=== PATIENT | male | born 1950 ===

== ENCOUNTER 2024-05-30 08:20 | Inpatient (IN) | payer MEDICARE, MEDICAID, SELFPAY ==
--- NOTE | ~2024-05-30 | CT_ITS ---
EXAMINATION: CT HEAD WITHOUT CONTRAST CLINICAL INFORMATION: Increasing confusion for 6 months. COMPARISON: None available. TECHNIQUE: Contiguous axial imaging was performed from the skull base to vertex without intravenous administration of contrast. This CT examination was performed using dose optimization techniques as appropriate, variously including the following: *Automated exposure control *Adjustment of mA and/or kV according to patient size (this includes techniques or standardized protocols for targeted exams where dose is matched to indication/reason for exam; i.e. extremities or head) *Use of iterative reconstruction technique DLP: 673 mGy-cm FINDINGS: CT examination of the brain shows mild age-related involutional changes with prominence of the ventricles and sulci. Periventricular white matter hypodensities are evident, likely on the basis of chronic microvascular ischemic disease. No acute hemorrhage, mass effect or shift is evident. In the posterior fossa, the brainstem, cerebellum and fourth ventricle are unremarkable. The right orbit contains a prosthesis.. The paranasal sinuses and mastoid air cells are well pneumatized and clear. CT/CT head/brain wo IV con IMPRESSION: 1. Mild Age-related involutional changes and microvascular disease. 2. No acute hemorrhage, mass effect, shift or acute intracranial pathology. Electronically signed by: Rivera Hernandez MD 05/30/2024 12:15 PM EDT
--- NOTE | ~2024-05-30 | XR_ITS ---
EXAMINATION: XR CHEST CLINICAL INFORMATION: Confusion COMPARISON: None available. TECHNIQUE: 2 views of the chest were obtained. FINDINGS: The cardiomediastinal silhouette is within normal limits. The lungs are well expanded. Hazy opacity in the medial aspect of the right lung base. There is no edema, or effusion. No pneumothorax. No acute osseous abnormality. Multilevel thoracic spine degeneration. XR/XR chest 2V IMPRESSION: Opacity in the medial aspect right lung base could reflect inflammatory or infectious process. Electronically signed by: German Alvarado MD 05/30/2024 12:07 PM EDT
[2024-05-30 08:46] VITALS: BP 128/56; PULSE 57; RESP 16; TEMP 37; O2SAT 98; BMI 28.0
[2024-05-30 09:25] LABS: MANUAL DIFF FLAG NO
[2024-05-30 09:28] LABS: Basophils Absolute Auto 0.1 X10*3/uL (0.0-0.2); Basophils Percent Auto 0.9 % (0-2); Eosinophils Absolute Auto 0.1 X10*3/uL (0.0-0.4); Eosinophils Percent Auto 2.2 % (0-4); Hematocrit 43.8 % (42.0-52.0); Hemoglobin 15.2 g/dl (14.0-18.0); Imm Gran Abs Auto 0.01 X10*3/uL (0.00-0.03); Imm Gran Pct Auto 0.2 % (0.0-0.4); Lymphocytes Absolute Auto 1.7 X10*3/uL (1.2-4.9); Lymphocytes Percent Auto 29.8 % (20-40); Mean Corpuscular HGB Conc 34.7 g/dl (31.0-36.0); Mean Corpuscular Hemoglobin 30.8 pg (27.0-33.0); Mean Corpuscular Volume 88.8 fL (80.0-98.0); Mean Platelet Volume 9.6 fL (9.4-12.4); Monocytes Absolute Auto 0.6 X10*3/uL (0.1-1.2); Monocytes Percent Auto 11.6 % (2-11); Neutrophils Absolute Auto 3.1 x10*3/uL (2.0-8.3); Neutrophils Percent Auto 55.3 % (45-73); Platelet Count 200 X10*3/uL (160-400); Red Blood Count 4.93 X10*6/uL (4.60-5.80); Red Cell Distribution Width 13.3 % (11.0-16.0); White Blood Count 5.5 X10*3/uL (4.8-10.8)
[2024-05-30 09:40] LABS: Anion Gap 9 (12-20); Blood Urea Nitrogen 13 mg/dL (9-16); Carbon Dioxide 28 mmol/L (22-29); Chloride 111 mmol/L (96-108); Creatinine Clr Calc Pharmacy 69.2; Estimated Glomerular Filt Rate > 60; Glucose Random 107 mg/dL (60-115); Potassium 4.1 mmol/L (3.3-5.1); Sodium 144 mmol/L (135-145)
--- NOTE | 2024-05-30 10:46 | ED_ITS ---
HPI - General Adult General Chief complaint: General Medical Stated complaint: high [id number] in legs Time Seen by Provider: 05/30/24 10:37 Source: patient, family, EMS, RN notes reviewed and old records reviewed Mode of arrival: EMS History of Present Illness ED Provider: Rachael Early PA-C HPI narrative: 73-year-old male Japanese-speaking with past medical history of Diabetes on Metformin, HTN, presenting to ED via EMS complaining of acute on chronic weakness with difficulty ambulating x6 months, difficulty sleeping last night, headache, blurry vision, sore throat, chronic SOB. also reports progressive confusion x1yr, sometimes does not recognize people or where he is. Denies recent injury/trauma or falls or anticoagulation use. Patient denies CP/SOB at present, abdominal pain, vomiting, dysuria/hematuria, focal weakness. Ambulates at baseline with cane. Denies any symptoms being new today. Patient is poor historian Related Data Home Medications ?Medication ?Instructions ?Recorded ?Confirmed losartan 25 mg tablet 25 mg PO DAILY 05/30/24 05/30/24 metformin 500 mg tablet 500 mg PO BIDWM 05/30/24 05/30/24 Previous Rx's ?Medication ?Instructions ?Recorded aspirin 81 mg chewable tablet 81 mg PO DAILY #90 tabs 05/30/24 atorvastatin 40 mg tablet 40 mg PO BEDTIME #30 tabs 05/30/24 cefuroxime axetil 500 mg tablet 500 mg PO BID #10 tabs 05/30/24 doxycycline hyclate 100 mg tablet 100 mg PO BID #10 tabs 05/30/24 Allergies Allergy/AdvReac Type Severity Reaction Status Date / Time No Known Allergies Allergy Mild NA Verified 05/30/24 08:52 Review of Systems 2 Review of Systems: Yes all other systems are reviewed and are negative Constitutional: Constitutional: Reports as per HPI Neurologic: Denies Abnormal speech present [facility] Past Medical History Attestation statement: The following information was validated with the patient. Source: old records reviewed Medical History Hyperlipidemia Hypertension Diabetes mellitus Social History Social History Patient Tobacco Use Status: Never used Tobacco Physical Exam ED Vital Signs: Vital Signs - 24 hr 05/30/24 08:46 05/30/24 12:30 Temperature 98.6 F 97.9 F Pulse Rate 57 53 Respiratory Rate 16 12 Blood Pressure 128/56 L 182/80 H Pulse Oximetry 98 99 Oxygen Delivery Method Room Air Room Air BMI result Body Mass Index 25.8 Const General: cooperative, healthy appearing, no acute distress, alert and awake Orientation/consciousness: patient oriented x3 Limitations: no limitations HENMT Head: Yes normal to inspection and Yes atraumatic Ears: hearing grossly normal bilaterally General nose exam: Normal external nose present Face and sinus: Yes normal facial exam Eyes General: appearance normal, both eyes and all related structures EOM: EOMs intact bilaterally Neck Neck: Yes normal visual inspection and Yes no meningeal signs Resp Effort & Inspection: normal respiratory effort and no respiratory distress Auscultation: clear to auscultation bilaterally, no crackles and no wheezes Cardio Rate: regular rate Heart sounds: S1 normal heart sound present and S2 normal heart sound present GI Inspection: Yes normal to inspection Palpation (GI): Soft to palpation, nontender, no guarding and not rigid General: Yes no CVA tenderness Back/Spine/Pelvis Back: no CVA tenderness Skin Rashes: no rashes Wounds: no wounds Neuro General: patient oriented x3, gait normal (slow steady), tone normal, moves all extremities, no meningeal signs, no focal motor deficits and CN's II-XI intact bilaterally Cranial nerves: Yes CN's II-XII intact bilaterally and Yes Bilaterally intact EOM present Cognition (Neuro): normal cognition Speech: No Abnormal speech present Gait exam (Neuro): Normal gait present Motor exam (neuro): 5/5 motor strength present throughout and no tremor noted Extrem General: Yes normal to inspection and Yes no pedal edema Course Course Course Narrative: -1230--troponin 249.1 > 2nd EKG now showing AFib with ? Wellen's. Patient denies known history of AFib or arrhythmia. Not currently on anticoagulation. Continues to deny chest pain at present. Denies prior bleeding history. > cardiology, Dr. Bedolla consulted -viral studies negative > 1317--per cardiology, Dr. Bedolla looks like LAD territory ischemia or RV strain, will obtain stat echo and initiate heparin CT head/brain wo IV con IMPRESSION: 1. Mild Age-related involutional changes and microvascular disease. 2. No acute hemorrhage, mass effect, shift or acute intracranial pathology. XR chest 2V IMPRESSION: Opacity in the medial aspect right lung base could reflect inflammatory or infectious process. > IV Rocephin initiated. -1410--bedside echo unremarkable. Dr. Bedolla at bedside recommended at stopping heparin at this time. Patient denies symptoms of ACS. We will continue to monitor/trend troponins and EKGs and admit for further management. Case discussed with hospitalist Medications Administered Discontinued Medications Generic Name Dose Route Start Last Admin Trade Name Adina PRN Reason Stop Dose Admin Aspirin 325 mg 05/30/24 13:00 05/30/24 14:13 Aspirin Enteric Coated 325 Mg Tablet. PO 05/30/24 13:01 325 mg ONCE ONE Administration Heparin Sodium (Porcine) 4,000 unit 05/30/24 13:12 05/30/24 13:48 Heparin Sodium,Porcine 5,000 Unit/Ml Vial IVPUSH 05/30/24 13:13 4,000 unit ONCE ONE Administration Heparin Sodium/Sodium Chloride 25,000 unit in 250 mls @ 0 mls/hr 05/30/24 13:15 05/30/24 14:48 Heparin Sodium,Porcine/1/2ns IVCONT Infused .Q0M JOSH Titration Protocol Per Protocol Ceftriaxone Sodium 1 gm/ 50 mls @ 100 mls/hr 05/30/24 14:12 05/30/24 16:07 Sodium Chloride IV 05/30/24 14:41 Infused ONCE ONE Infusion Medical Decision Making Medical Decision Making MDM Narrative: 73-year-old male Japanese-speaking with past medical history of Diabetes on Metformin, HTN, presenting to ED via EMS complaining of acute on chronic weakness with difficulty ambulating x6 months, difficulty sleeping last night, headache, blurry vision, sore throat, chronic SOB. also reports progressive confusion x1yr. Denies any symptoms being new today. On exam vital signs stable, NAD, nontoxic, A&O x3, ambulating with slow steady gait, no ataxia, exam nonfocal. Concern for hyperglycemia/HHS, metabolic abnormalities, progressive dementia vs subacute CVA vs chronic diabetic retinopathy. Rule out infectious etiology. Low suspicion for sepsis. Low suspicion for acute ACS Plan: EKG, labs, UA, CXR, head CT, +/-PT/case management Please refer to course for remaining clinical decision making, interpretation of labs/imaging results, and discussions with consultants and/or family members. Differential Diagnosis Differential Diagnoses: The differential diagnosis associated with the presentation includes As above Admission/Observation Consideration of admission/observation: Escalation of care including admission/observation considered Lab Data MDM Lab Attestation statement: I reviewed the patient's lab results. 05/30/24 09:19 05/30/24 09:19 Labs: Lab Results 05/30/24 05/30/24 05/30/24 Range/Units 09:19 11:25 11:45 WBC 5.5 (4.8-10.8) X10*3/uL RBC 4.93 (4.60-5.80) X10*6/uL Hgb 15.2 (14.0-18.0) g/dl Hct 43.8 (42.0-52.0) % MCV 88.8 (80.0-98.0) fL MCH 30.8 (27.0-33.0) pg MCHC 34.7 (31.0-36.0) g/dl RDW 13.3 (11.0-16.0) % Plt Count 200 (160-400) X10*3/uL MPV 9.6 (9.4-12.4) fL Immature Gran % (Auto) 0.2 (0.0-0.4) % Neut % (Auto) 55.3 (45-73) % Lymph % (Auto) 29.8 (20-40) % [place] % (Auto) 11.6 H (2-11) % Eos % (Auto) 2.2 (0-4) % Baso % (Auto) 0.9 (0-2) % Lymph # (Auto) 1.7 (1.2-4.9) X10*3/uL [place] # (Auto) 0.6 (0.1-1.2) X10*3/uL Eos # (Auto) 0.1 (0.0-0.4) X10*3/uL Baso # (Auto) 0.1 (0.0-0.2) X10*3/uL Abs Immat Gran (auto) 0.01 (0.00-0.03) X10*3/uL Absolute Neuts (auto) 3.1 (2.0-8.3) x10*3/uL Absolute Nucleated RBC 0.000 (0.0-0.012) X10*3/uL Nucleated RBC % (auto) 0.0 (0.0-0.2) /100WBC PT (10.9-12.4) SEC INR (0.9-1.1) APTT (26.0-36.8) SEC Sodium 144 (135-145) mmol/L Potassium 4.1 (3.3-5.1) mmol/L Chloride 111 H (96-108) mmol/L Carbon Dioxide 28 (22-29) mmol/L Anion Gap 9 L (12-20) BUN 13 (9-16) mg/dL Creatinine 0.88 (0.5-1.4) mg/dL Estim Creat Clear Calc 69.2 Estimated GFR > 60 Random Glucose 107 (60-115) mg/dL Calcium 9.0 (8.4-10.2) mg/dL Magnesium 2.1 (1.6-2.6) mg/dL Total Bilirubin 1.2 H (0.0-1.0) mg/dL Direct Bilirubin 0.4 (0.0-0.5) mg/dL AST 15 (5-37) U/L ALT 18 (0-40) U/L Alkaline Phosphatase 58 (39-117) U/L Ammonia 29 (13-55) umol/L Troponin I High Sens 249.1 H* (<3.5-35.0) ng/L B-Natriuretic Peptide 123 H (<100) pg/mL Total Protein 6.6 (6.5-8.0) g/dL Albumin 4.0 (3.5-5.0) g/dL Urine Color Yellow Urine Appearance Clear Urine pH 5.5 (5.0-9.0) Ur Specific [place] <= 1.005 (1.005-1.025) Urine Protein Negative (Neg-Trace) mg/dL Urine Glucose (UA) Negative (Negative) mg/dL Urine Ketones Negative (Negative) mg/dL Urine Blood Negative (Negative) Urine Nitrite Negative (Negative) Ur Leukocyte Esterase Negative (Negative) Influenza Type A (PCR) NEGATIVE (Negative) Influenza Type B (PCR) NEGATIVE (Negative) RSV RNA Qual (PCR) NEGATIVE (Negative) SARS-CoV-2 RNA (RT-PCR) NEGATIVE (Negative) S. pyogenes GrpA SUNSHINE (Negative) 05/30/24 Range/Units 12:41 WBC (4.8-10.8) X10*3/uL RBC (4.60-5.80) X10*6/uL Hgb (14.0-18.0) g/dl Hct (42.0-52.0) % MCV (80.0-98.0) fL MCH (27.0-33.0) pg MCHC (31.0-36.0) g/dl RDW (11.0-16.0) % Plt Count (160-400) X10*3/uL MPV (9.4-12.4) fL Immature Gran % (Auto) (0.0-0.4) % Neut % (Auto) (45-73) % Lymph % (Auto) (20-40) % [place] % (Auto) (2-11) % Eos % (Auto) (0-4) % Baso % (Auto) (0-2) % Lymph # (Auto) (1.2-4.9) X10*3/uL [place] # (Auto) (0.1-1.2) X10*3/uL Eos # (Auto) (0.0-0.4) X10*3/uL Baso # (Auto) (0.0-0.2) X10*3/uL Abs Immat Gran (auto) (0.00-0.03) X10*3/uL Absolute Neuts (auto) (2.0-8.3) x10*3/uL Absolute Nucleated RBC (0.0-0.012) X10*3/uL Nucleated RBC % (auto) (0.0-0.2) /100WBC PT 13.0 H (10.9-12.4) SEC INR 1.1 (0.9-1.1) APTT 30.2 (26.0-36.8) SEC Sodium (135-145) mmol/L Potassium (3.3-5.1) mmol/L Chloride (96-108) mmol/L Carbon Dioxide (22-29) mmol/L Anion Gap (12-20) BUN (9-16) mg/dL Creatinine (0.5-1.4) mg/dL Estim Creat Clear Calc Estimated GFR Random Glucose (60-115) mg/dL Calcium (8.4-10.2) mg/dL Magnesium (1.6-2.6) mg/dL Total Bilirubin (0.0-1.0) mg/dL Direct Bilirubin (0.0-0.5) mg/dL AST (5-37) U/L ALT (0-40) U/L Alkaline Phosphatase (39-117) U/L Ammonia (13-55) umol/L Troponin I High Sens (<3.5-35.0) ng/L B-Natriuretic Peptide (<100) pg/mL Total Protein (6.5-8.0) g/dL Albumin (3.5-5.0) g/dL Urine Color Urine Appearance Urine pH (5.0-9.0) Ur Specific [place] (1.005-1.025) Urine Protein (Neg-Trace) mg/dL Urine Glucose (UA) (Negative) mg/dL Urine Ketones (Negative) mg/dL Urine Blood (Negative) Urine Nitrite (Negative) Ur Leukocyte Esterase (Negative) Influenza Type A (PCR) (Negative) Influenza Type B (PCR) (Negative) RSV RNA Qual (PCR) (Negative) SARS-CoV-2 RNA (RT-PCR) (Negative) S. pyogenes GrpA SUNSHINE Negative (Negative) Independent Interpretation I performed an independent interpretation of an: EKG (My interpretation EKG with incomplete right bundle-branch block. Sinus bradycardia with marked sinus arrhythmia rate of 46. Nonspecific T-wave abnormality in inferior leads. No STEMI.), Plain X-Ray and CT Scan Interpretation: EKG#2: AFib has replaced sinus rhythm, rate of 48. QTC 428. No STEMI. Radiology Impression Discussion of test interpretation with radiology: I have reviewed the radiologist's reading. Independent Historian Clinical information obtained from an independent historian. History obtained from or confirmed by: Spouse and EMS External Record Review External record reviewed: Inpatient record, Office record, Outpatient record, Prior outpatient labs, Prior outpatient radiology, Primary care record and Outside ED record Tests considered The following testing was considered but not selected: As above Chronic Conditions Patient?s care impacted by: Diabetes and Hypertension Critical Care Time Critical Care Time Critical Care Time: Yes Total Critical Care Time: 50 Attestation: I have personally provided critical care time exclusive of time spent on separately billable procedures. Time includes review of lab data, radiology results, discussion with consultants, and monitoring for potential decompensation. Intervention performed as documented. Discharge Plan Discharge Clinical Impression: Elevated troponin, Acute electrocardiogram changes, Weakness, Pneumonia Patient Disposition: Left Against Medical Advice Interventions: ED Discharge Assessment Last Done: 05/30/24 16:54 Discharge Date/Time: 05/30/24 17:22
--- NOTE | 2024-05-30 11:19 | ECG_ITS ---
Test Reason : WEAKNESS Blood Pressure : / mmHG Vent. Rate : 046 BPM Atrial Rate : 046 BPM P-R Int : 188 ms QRS Dur : 118 ms QT Int : 482 ms P-R-T Axes : 000 061 151 degrees QTc Int : 421 ms Sinus bradycardia with marked sinus arrhythmia Incomplete right bundle branch block ST & Marked T wave abnormality, consider anterolateral ischemia Abnormal ECG When compared with ECG of 12-AUG-2008 15:22, Vent. rate has decreased BY 22 BPM Incomplete right bundle branch block is now Present Non-specific change in ST segment in Anterior leads Nonspecific T wave abnormality now evident in Inferior leads T wave inversion now evident in Anterior leads Referred By: Rachael Early Electronically Signed By:
[2024-05-30 11:38] LABS: Appearance Urine Clear; Color Urine Yellow; Glucose Urine UA Negative (Negative); Leukocyte Esterase Urine Negative (Negative); Nitrite Urine Negative (Negative); PH 5.5 (5.0-9.0); Specific Gravity - Urine <= 1.005 (1.005-1.025); Urine Blood Negative (Negative); Urine Ketones Negative (Negative); Urine Protein Negative (Neg-Trace)
[2024-05-30 11:48] LABS: Alanine Aminotransferase 18 U/L (0-40); Alkaline Phosphatase 58 U/L (39-117); Aspartate Amino Transferase 15 U/L (5-37); Bilirubin Direct 0.4 mg/dL (0.0-0.5); Bilirubin Total 1.2 mg/dL (0.0-1.0); Magnesium 2.1 mg/dL (1.6-2.6); Total Protein 6.6 g/dL (6.5-8.0)
[2024-05-30 12:05] LABS: Ammonia 29 umol/L (13-55)
[2024-05-30 12:09] LABS: Troponin-I High Sensitivity 249.1 ng/L (<3.5-35.0)
[2024-05-30 12:30] VITALS: BP 182/80; PULSE 53; RESP 12; TEMP 36.6; O2SAT 99
[2024-05-30 12:32] LABS: Influenza A PCR NEGATIVE (Negative); Influenza B PCR NEGATIVE (Negative); Resp Syncy Virus RNA Qual PCR NEGATIVE (Negative); SARS COV2 PCR INHOUSE NEGATIVE (Negative)
[2024-05-30 12:46] LABS: B Type Natriuretic Peptide 123 pg/mL (<100)
[2024-05-30 12:55] LABS: INTERNATIONAL NORM RATIO 1.1 (0.9-1.1)
[2024-05-30 12:57] LABS: IDNOW Serial# 58CA691E; Strep A Nucleic Acid Negative (Negative)
[2024-05-30 12:58] LABS: Partial Thromboplastin Time 30.2 SEC (26.0-36.8)
--- NOTE | 2024-05-30 13:10 | CA_ITS ---
Transthoracic Echocardiogram Patient (Last, First, Middle): Michael Daley, Gender: Male Date of : 1950 Age: 73 Procedure Date: 05/30/2024 Procedure Type: Transthoracic Echocardiogram Location: ER Height: 165.1 cm Weight: 76.2 kg BSA: 1.84 m2 Heart Rate: 42 bpm BP: 134 / 89 mmHg Deckhand Maintenance: INDU Referring MD: Rachael VOSS Social Work Professor: Giovani Bedolla MD Symptoms: ?LAD territory ischemia vs RV strain Study Quality: Adequate w contrast ECG Rhythm: Sinus bradycardia with ectopy Conclusions: - 1. Hyperdynamic LV ejection fraction greater than 70% with mild asymmetric septal and apical hypertrophy with impaired relaxation filling pattern 2. Normal cardiac valvular Doppler 3. Normal RV systolic pressure 4. Mildly dilated ascending aorta at 3.7 cm 5. No gross pericardial effusion Findings Procedure Information Contrast agent, definity, is being given per protocol without apparent complications. Left Ventricle Normal left ventricular cavity size. There is normal left ventricular wall thickness. The left ventricular systolic function is hyperdynamic. The visually estimated ejection fraction is >70%. Spectral Doppler is indicative of an impaired relaxation filling pattern. E/E prime ratio is between 8 and 15 consistent with indeterminate filling pressures. There is mild septal and mild apical asymmetric hypertrophy. Right Ventricle Mildly increased right ventricular cavity size. There is normal right ventricular systolic function. Atria The left atrium is normal in size. Interatrial shunt cannot be excluded. The right atrium is normal in size. Aortic Valve There is mild calcification of the aortic valve. There is mild thickening of the aortic valve. There is no aortic valve stenosis. There is no aortic valve regurgitation. Mitral Valve Normal mitral valve structure and function. There is trace mitral valve regurgitation. There is no mitral valve stenosis. Pulmonic Valve The pulmonic valve is likely normal. There is trace pulmonic valve regurgitation. Tricuspid Valve Normal tricuspid valve structure. There is trace tricuspid valve regurgitation. The right ventricular systolic pressure is normal. The right ventricular systolic pressure is 24 mmHg. Normal right atrial pressure. There is no evidence of pulmonary hypertension. Great Vessels The pulmonary artery was not well visualized. There is mild dilatation of the ascending aorta measuring 3.70 cm. Small plaque is seen in the sino tubular ridge. Venous The inferior vena cava is normal in size and collapses greater than 50% with inspiration. Pericardium/Pleural There is no evidence of pericardial effusion. Prior Study Comparison no previous study in the last 5 years for comparison Measurements 2D Linear Measurements IVSd: 1.24 0.6-0.9/0.6-1.0 cm LVIDd: 5.18 3.9-5.3/4.2-5.9 cm LVIDd Index: 2.82 2.4-3.2/2.2-3.1 cm/m2 LVIDs: 2.82 2.0-3.6 cm LVPWd: 0.91 0.7-1.1 cm LA Diam: 4.00 2.7-3.8/3.0-4.0 cm LAIDs Index: 2.17 1.5-2.3 cm/m2 LV Mass: 296.31 67-162/88-224 g LV Mass Index: 161.04 43-95/49-115 g/m2 LVOT Diam: 2.20 3.0+(-)1.3 cm 2D Systolic Function EF 4C: 77.70 >55% EF 2C: 83.30 >55% EF BiP: 80.50 >55% Mitral Valve MV Pk E: 0.62 MV PK A: 0.51 MV Decel Time: 292.00 E/A: 1.20 E'Lateral: 8.05 E'Medial: 4.35 E/E' Med: 14.20 E/E' Lat: 7.70 PHT: 86.00 MVA PHT: 2.56 Decel [place]: 2.11 Aortic Valve AoV Pk Star: 1.15 AoV Pk Grad: 5.00 NOLVIA: 2.60 LVOT LVOT Pk Star: 0.83 LVOT Mn Star: 0.53 LVOT VTI: 0.18 LVOT Pk Grad: 3.00 LVOT Mn Grad: 1.00 LVOT Diam: 2.20 LVOT Area: 3.80 Diastolic Function MV Pk E: 0.62 MV Pk A: 0.51 E/A: 1.20 E'Medial: 4.35 E/E' Med: 14.20 E' Laterial: 8.05 E/E' Lat: 7.70 Right Ventricle TAPSE (mm): 21.90 TVS' Star: 14.70 Tricuspid Valve TR Pk Star: 2.31 TR Pk Grad: 21.00 RA Press: 3.00 RVSP: 24.00 Great Vessels Aorta Sinus of Valsalva: 3.60 2.0-3.5 cm Ao Asc: 3.70 2.1-3.4 cm Pulmonary Valve PV Pk Star: 0.95 Peak PV Grad: 4.00 Updated in Other Vendor System with Status of Final Giovani Bedolla MD electronically signed on 05/30/2024 2:49:56 PM with status of Final
[2024-05-30 13:17] VITALS: BMI 25.8
[2024-05-30] MEDS: Heparin Sodium,Porcine/1/2NS 25,000 UNIT/250 ML IV.SOLN 9.17 UNIT IVCONT (13:45)
[2024-05-30] MEDS: Heparin Sodium,Porcine 5,000 UNIT/ML VIAL 4000 UNIT IVPUSH (13:48)
[2024-05-30] MEDS: Aspirin Enteric Coated 325 MG TABLET.DR PO (14:13)
--- NOTE | 2024-05-30 14:16 | PM.IMHP ---
History of Present Illness Date of Service: 05/30/24 Chief Complaint: weakness 73-year-old male Colombian-speaking with past medical history of Diabetes on Metformin, HTN, presenting to ED via EMS complaining of acute on chronic weakness with difficulty ambulating x6 months, difficulty sleeping last night, headache, blurry vision, sore throat, chronic SOB. also reports progressive confusion x1yr, sometimes does not recognize people or where he is. Denies recent injury/trauma or falls or anticoagulation use. Patient denies CP/SOB at present, abdominal pain, vomiting, dysuria/hematuria, focal weakness. Ambulates at baseline with cane. Denies any symptoms being new today. Patient has history of progressive weakness. The patient reports that they had moved from the [place] is paroxysmal 1 year ago and he has not been seen by a primary care provider since then. It also does not appear that he has had any medication refills either. In the ER, Troponin peaked at 249.1. Apparently he had been started on IV heparin, had a stat echocardiogram which looked okay and IV heparin drip was stopped. BNP 123. Head CT showing no acute intracranial abnormality, chest x-ray showing opacity in the medial aspect of the right lung reflecting inflammatory versus infectious process. No fever leukocytosis noted. Blood pressure noted to be elevated. Plan will be to admit for further management of community-acquired pneumonia, failure to thrive and abnormal EKG Review of Systems Review of Systems: Denies any recent fever chills or decrease in appetite respiratory denies any shortness of breath coverage production cardiovascular denied chest pain gastrointestinal denies any dysphagia abdominal pain nausea vomiting or diarrhea genitourinary denies any dysuria frequency or hematuria musculoskeletal denies any joint pain or swelling neuropsych denies any weakness or seizures all other systems reviewed are negative [facility] Medical History Hyperlipidemia Hypertension Diabetes mellitus Pertinent family history: Denied cardiac disease Social History Patient Tobacco Use Status: Never used Tobacco Advance Directives: No Advance Directives Information Provided: Yes Nutrition Risks: No Nutritional Risk Meds Allergies Allergy/AdvReac Type Severity Reaction Status Date / Time No Known Allergies Allergy Mild NA Verified 05/30/24 08:52 Active Medications: Current Medications Ceftriaxone Sodium 1 gm/ (Sodium Chloride) 50 mls @ 100 mls/hr IV ONCE ONE Stop: 05/30/24 14:41 Home Medications ?Medication ?Instructions ?Recorded ?Confirmed ?Last Taken ?Type losartan 25 mg tablet 25 mg PO DAILY 05/30/24 05/30/24 05/29/24 History metformin 500 mg tablet 500 mg PO BIDWM 05/30/24 05/30/24 05/29/24 History Physical Exam Vital Signs and Narrative: Vital Signs: Last Vital Signs Temp 97.9 F 05/30/24 12:30 Pulse 53 05/30/24 12:30 Resp 12 05/30/24 12:30 BP 182/80 H 05/30/24 12:30 Pulse Ox 99 05/30/24 12:30 O2 Del Method Room Air 05/30/24 12:30 BMI result Body Mass Index 25.8 Appearing in no acute distress head is normocephalic atraumatic eyes pupils are PERRLA sclera is anicteric mouth throat mucous membranes are intact and moist neck is supple no lymphadenopathy, no JVD noted lung sounds are clear to auscultation heart regular rate rhythm, clear S1, S2 positive bowel sounds, abdomen is soft, nontender neuro patient is alert x3, no focal deficits Results Labs 05/30/24 09:19 05/30/24 09:19 Labs: Laboratory Results - last 24 hr 05/30/24 05/30/24 05/30/24 09:19 11:25 11:45 MCV 88.8 MCH 30.8 MCHC 34.7 RDW 13.3 Plt Count 200 MPV 9.6 Immature Gran % (Auto) 0.2 Neut % (Auto) 55.3 Lymph % (Auto) 29.8 [place] % (Auto) 11.6 H Eos % (Auto) 2.2 Baso % (Auto) 0.9 Lymph # (Auto) 1.7 [place] # (Auto) 0.6 Eos # (Auto) 0.1 Baso # (Auto) 0.1 Abs Immat Gran (auto) 0.01 Absolute Neuts (auto) 3.1 Absolute Nucleated RBC 0.000 Nucleated RBC % (auto) 0.0 PT INR APTT Anion Gap 9 L Estim Creat Clear Calc 69.2 Estimated GFR > 60 Random Glucose 107 Calcium 9.0 Magnesium 2.1 Total Bilirubin 1.2 H Direct Bilirubin 0.4 AST 15 ALT 18 Alkaline Phosphatase 58 Ammonia 29 Troponin I High Sens 249.1 H* B-Natriuretic Peptide 123 H Total Protein 6.6 Albumin 4.0 Urine Color Yellow Urine Appearance Clear Urine pH 5.5 Ur Specific [place] <= 1.005 Urine Protein Negative Urine Glucose (UA) Negative Urine Ketones Negative Urine Blood Negative Urine Nitrite Negative Ur Leukocyte Esterase Negative Influenza Type A (PCR) NEGATIVE Influenza Type B (PCR) NEGATIVE RSV RNA Qual (PCR) NEGATIVE SARS-CoV-2 RNA (RT-PCR) NEGATIVE S. pyogenes GrpA SUNSHINE 05/30/24 12:41 MCV MCH MCHC RDW Plt Count MPV Immature Gran % (Auto) Neut % (Auto) Lymph % (Auto) [place] % (Auto) Eos % (Auto) Baso % (Auto) Lymph # (Auto) [place] # (Auto) Eos # (Auto) Baso # (Auto) Abs Immat Gran (auto) Absolute Neuts (auto) Absolute Nucleated RBC Nucleated RBC % (auto) PT 13.0 H INR 1.1 APTT 30.2 Anion Gap Estim Creat Clear Calc Estimated GFR Random Glucose Calcium Magnesium Total Bilirubin Direct Bilirubin AST ALT Alkaline Phosphatase Ammonia Troponin I High Sens B-Natriuretic Peptide Total Protein Albumin Urine Color Urine Appearance Urine pH Ur Specific [place] Urine Protein Urine Glucose (UA) Urine Ketones Urine Blood Urine Nitrite Ur Leukocyte Esterase Influenza Type A (PCR) Influenza Type B (PCR) RSV RNA Qual (PCR) SARS-CoV-2 RNA (RT-PCR) S. pyogenes GrpA SUNSHINE Negative Imaging Radiologist's Impressions: Impressions Chest X-Ray 05/30/24 11:18 IMPRESSION: Opacity in the medial aspect right lung base could reflect inflammatory or infectious process. Electronically signed by: German Alvarado MD 05/30/2024 12:[address] 05/30/24 11:48 IMPRESSION: 1. Mild Age-related involutional changes and microvascular disease. 2. No acute hemorrhage, mass effect, shift or acute intracranial pathology. Electronically signed by: Rivera Hernandez MD 05/30/2024 12:15 PM EDT Assessment and Plan (1) Pneumonia: Status: Acute Plan 73 year old man admitted with weakness, PNA and elevated troponin Elevated Troponin No chest pain Initial changes on EKG noted ED provider discussed with Cardiology, initially heparin started but echocardiogram was normal so IV heparin stopped Serial troponins Monitor on telemetry CAP No hypoxia noted but may use supplemental oxygen to keep oxygen saturation greater than 90% Start Rocephin, azithromycin follow respiratory status Hypertension Elevated blood pressure reading Continue losartan DM2 ss, ada diet FTT Supportive care Physical therapy consultation HLD statin DVT prophylaxis with Full code Quality Stroke Does the patient have a stroke diagnosis?: No VTE Prior VTE?: No VTE Risk Level:: Medical - moderate - high VTE Device Contraindication: Treatment Not Indicated VTE Drug Contraindication: N/A - Med Ordered
--- NOTE | 2024-05-30 14:29 | P.CONCA_ITS ---
History of Present Illness History of Present Illness Date of Service: 05/30/24 Requesting physician: Rachael Early Consult reason: troponin elevation Chief complaint: Elevated troponin, CAP Narrative: I was consulted from ED to see Michael due to abnormal EKG and abnormal troponin. Patient was Sammarinese-speaking and a very poor historian. History was obtained with help of a bedside mushroom press operator, 1 of patient's relatives. Patient is not able to provide much history but as per the relative patient is not able to take care of his health at home and was not able to find primary care physician and therefore came to the emergency room for further care. History is very difficult. Patient has weakness and difficulty walking as per the person. He had never had any cardiac symptoms. Denies any chest pain shortness of breath. The person capsular the patient was diabetes and high blood pressure which is not controlled. There is no other cardiac symptoms of shortness of breath, orthopnea, PND although this is very difficult to assess. Not sure if patient has any fever or chills. EKG done showed deep T-wave inversion anterior leads. Troponin was drawn for unclear reason as patient did not have any cardiac symptoms although had abnormal EKG and this was 1st troponin was abnormal. On consulting with me when I saw EKG changes and troponin elevation I recommended the ER team to start heparin thinking patient might have LAD territory ischemia. Bedside echo was done and I reviewed it and there was no LAD territory wall motion abnormality and EKGs most likely suggestive of apical hypertrophic cardiomyopathy and therefore how to not think patient has acute coronary syndrome. Heparin to be discontinued. Review of Systems 2 Review of Systems: Yes Unobtainable due to mental status PMFSH Past Medical History Medical History Hyperlipidemia Hypertension Diabetes mellitus Social History Social History Advance Directives: No Advance Directives Information Provided: Yes Meds Allergies Allergy/AdvReac Type Severity Reaction Status Date / Time No Known Allergies Allergy Mild NA Verified 05/30/24 08:52 Active Medications: Current Medications Acetaminophen (Acetaminophen 325 Mg Tablet) 650 mg PO Q6H PRN PRN Reason: Pain, Mild (Pain Scale 1-3), fever or headache Calcium Carbonate (Calcium Carbonate 750 Mg Tab.Chew) 750 mg PO Q4H PRN PRN Reason: Heartburn Glucose (Glucose Gel 15 Gm Gel..Gram.) 15 gm PO Q15M PRN; Protocol PRN Reason: per Hypoglycemia Standing Ord. Heparin Sodium (Porcine) (Heparin Sodium,Porcine 5,000 Unit/Ml Vial) 5,000 unit SUBCUT Q12H [facility] Ceftriaxone Sodium 1 gm/ (Sodium Chloride) 50 mls @ 100 mls/hr IV ONCE ONE Stop: 05/30/24 14:41 Dextrose (D10) 250 mls @ 750 mls/hr IV Q15M PRN; Protocol PRN Reason: per Hypoglycemia Standing Ord. Insulin Human Lispro (Insulin Lispro 100 Unit/Ml 3 Ml Vial) 0 unit SUBCUT QIDACHS [facility]; Protocol Magnesium Hydroxide (Milk Of Magnesia 30 Ml Oral.Susp) 30 ml PO DAILY PRN PRN Reason: Constipation Melatonin (Melatonin 3 Mg Tablet) 6 mg PO BEDTIME PRN PRN Reason: Insomnia Ondansetron HCl (Ondansetron Hcl 4 Mg/2 Ml Vial) 4 mg IVPUSH Q8H PRN PRN Reason: Nausea and Vomiting Sodium Chloride (0.9 % Sodium Chloride Flush 3 Ml Syringe) 3 ml IVFLUSH [facility] Home Medications ?Medication ?Instructions ?Recorded ?Confirmed ?Last Taken ?Type atorvastatin 10 mg tablet 10 mg PO DAILY 05/30/24 Unknown History losartan 25 mg tablet 25 mg PO DAILY 05/30/24 Unknown History metformin 500 mg tablet 500 mg PO BID 05/30/24 Unknown History trazodone 50 mg tablet 50 mg PO BEDTIME 05/30/24 Unknown History Physical Exam 2 Vital Signs: Vital Signs: Last Vital Signs Temp 97.9 F 05/30/24 12:30 Pulse 53 05/30/24 12:30 Resp 12 05/30/24 12:30 BP 182/80 H 05/30/24 12:30 Pulse Ox 99 05/30/24 12:30 O2 Del Method Room Air 05/30/24 12:30 BMI result Body Mass Index 25.8 Const: General: cooperative, comfortable, no acute distress, alert and awake Nutritional Appearance: average body habitus HEENT: Head: Yes normocephalic and Yes atraumatic Neck: Neck: Yes trachea midline, Yes supple and Yes no JVD Resp: Effort & Inspection: normal respiratory effort Auscultation: clear to auscultation bilaterally Cardio: Jugular venous distension: no JVD Palpation: normal PMI Rate: r egular rate Rhythm: regular rhythm Heart sounds: S1 normal heart sound present, S2 normal heart sound present, no click, no gallops, no murmurs and no rubs GI: Auscultation: normal bowel sounds Skin: General skin exam: no rashes or lesions noted Neuro: General: no focal motor deficits Extrem: General: Yes no clubbing, cyanosis or edema Objective Labs and Meds 05/30/24 09:19 05/30/24 09:19 Lab results: Laboratory Results - last 24 hr 05/30/24 05/30/24 05/30/24 09:19 11:25 11:45 WBC 5.5 RBC 4.93 Hgb 15.2 Hct 43.8 MCV 88.8 MCH 30.8 MCHC 34.7 RDW 13.3 Plt Count 200 MPV 9.6 Immature Gran % (Auto) 0.2 Neut % (Auto) 55.3 Lymph % (Auto) 29.8 [place] % (Auto) 11.6 H Eos % (Auto) 2.2 Baso % (Auto) 0.9 Lymph # (Auto) 1.7 [place] # (Auto) 0.6 Eos # (Auto) 0.1 Baso # (Auto) 0.1 Abs Immat Gran (auto) 0.01 Absolute Neuts (auto) 3.1 Absolute Nucleated RBC 0.000 Nucleated RBC % (auto) 0.0 PT INR APTT Sodium 144 Potassium 4.1 Chloride 111 H Carbon Dioxide 28 Anion Gap 9 L BUN 13 Creatinine 0.88 Estim Creat Clear Calc 69.2 Estimated GFR > 60 Random Glucose 107 Calcium 9.0 Magnesium 2.1 Total Bilirubin 1.2 H Direct Bilirubin 0.4 AST 15 ALT 18 Alkaline Phosphatase 58 Ammonia 29 Troponin I High Sens 249.1 H* B-Natriuretic Peptide 123 H Total Protein 6.6 Albumin 4.0 Urine Color Yellow Urine Appearance Clear Urine pH 5.5 Ur Specific [place] <= 1.005 Urine Protein Negative Urine Glucose (UA) Negative Urine Ketones Negative Urine Blood Negative Urine Nitrite Negative Ur Leukocyte Esterase Negative Influenza Type A (PCR) NEGATIVE Influenza Type B (PCR) NEGATIVE RSV RNA Qual (PCR) NEGATIVE SARS-CoV-2 RNA (RT-PCR) NEGATIVE S. pyogenes GrpA SUNSHINE 05/30/24 12:41 WBC RBC Hgb Hct MCV MCH MCHC RDW Plt Count MPV Immature Gran % (Auto) Neut % (Auto) Lymph % (Auto) [place] % (Auto) Eos % (Auto) Baso % (Auto) Lymph # (Auto) [place] # (Auto) Eos # (Auto) Baso # (Auto) Abs Immat Gran (auto) Absolute Neuts (auto) Absolute Nucleated RBC Nucleated RBC % (auto) PT 13.0 H INR 1.1 APTT 30.2 Sodium Potassium Chloride Carbon Dioxide Anion Gap BUN Creatinine Estim Creat Clear Calc Estimated GFR Random Glucose Calcium Magnesium Total Bilirubin Direct Bilirubin AST ALT Alkaline Phosphatase Ammonia Troponin I High Sens B-Natriuretic Peptide Total Protein Albumin Urine Color Urine Appearance Urine pH Ur Specific [place] Urine Protein Urine Glucose (UA) Urine Ketones Urine Blood Urine Nitrite Ur Leukocyte Esterase Influenza Type A (PCR) Influenza Type B (PCR) RSV RNA Qual (PCR) SARS-CoV-2 RNA (RT-PCR) S. pyogenes GrpA SUNSHINE Negative Bedside echo, preliminary shows normal LV ejection fraction with apical hypertrophic cardiomyopathy Imaging Radiologist's impression: Impressions Chest X-Ray 05/30/24 11:18 IMPRESSION: Opacity in the medial aspect right lung base could reflect inflammatory or infectious process. Electronically signed by: German Alvarado MD 05/30/2024 12:07 PM EDT RP Head CT 05/30/24 11:48 IMPRESSION: 1. Mild Age-related involutional changes and microvascular disease. 2. No acute hemorrhage, mass effect, shift or acute intracranial pathology. Electronically signed by: Rivera Hernandez MD 05/30/2024 12:15 PM EDT RP Assessment and Plan (1) Elevated troponin: Status: Acute Elevated troponin, would continue trend every 6 hours of unclear etiology could be related to hypertension hypertensive heart disease. Patient has no ischemic symptoms. Although EKGs abnormal this is suggestive of apical hypertrophic cardiomyopathy and no significant wall motion in the LAD territory. I do not think patient requires IV anticoagulation. Continue to monitor troponin done with a further rise we may need to pursue further treatment and workup. Seems like he presented to the emergency room with chronic complains and not able to find a primary care physician and has elevated blood pressure. I would increase his losartan to 50 mg daily and add amlodipine to his regimen. Would avoid beta-blockers given his low heart rate. Full disclosure cardiac monitoring can be pursued. Will follow with you Procedures Date of Service Date of Service: 05/30/24
[2024-05-30 14:37] VITALS: BP 189/85; PULSE 56; RESP 10; TEMP 36.6; O2SAT 97
--- NOTE | 2024-05-30 14:44 | PHA.MEDREC ---
Pharmacy Consult ? Medication Reconciliation Pharmacy has completed the medication reconciliation. Spoke with as daughter translated at bedside. pulled out only 2 bottles from purse at states this is all he is on (Metformin and Losartan). When asked about recent claims for Trazodone and Atorvastatin, they state pt is no longer on these medications.
--- NOTE | 2024-05-30 14:50 | PC.NURSE ---
Heparin drip d/c per cardiology.
[2024-05-30] MEDS: cefTRIAXone sodium 1 GM in 0.9 % Sodium Chloride 50 ML IV (14:57)
[2024-05-30 15:15] LABS: Troponin-I High Sensitivity 247.3 ng/L (<3.5-35.0)
--- NOTE | 2024-05-30 15:34 | P.DS_ITS ---
DS: Providers Provider Date of Service: 05/30/24 Date of admission: 05/30/24 14:21 Primary care physician: None Physician DS: Diagnosis Discharge Diagnosis (1) Pneumonia: Status: Acute DS: Summary Hospital Course Hospital Course: Patient came to the ER with weakness, headache, inability to sleep, was found to have elevated troponin and possible pneumonia. He was initially started on IV heparin drip but then seen by billet inspector and had stat echocardiogram and hepa rin was subsequently stopped. He was given a dose of IV antibiotics. However, patient and his decided to leave against medical advice. The patient has decided to leave against medical advice. He has normal mental status and adequate capacity to make medical decisions, although he does have some remote history of dementia, his is present who is his healthcare proxy. The patient refuses hospital admission and wants to be discharged. The risks have been explained to the patient including worsening illness, chronic pain, permanent disability and even . The benefits of admission have also been explained including the availability of nurses, medical providers, close monitoring, IV medications, diagnostic imaging, treatments, etc.. The patient was able to understand and state the risks and benefits of hospital admission. The patient was given opportunities to ask questions prior to leaving. Patient is to return to the hospital for any continued or worsening symptoms. Medication sent to his pharmacy for community-acquired pneumonia including Ceftin and doxycycline for 5 days. And aspirin and statin. Patient is to follow-up with a primary care provider to initiate care. Time Attestation Discharge Coordination Time (in mins): 36 Quality: Safe Use of Opioids Does Pt have an Active Cancer Diagnosis on the Problem List?: No Quality: Stroke Does the patient have a stroke diagnosis?: No Physical Exam Vital Signs: Vital Signs: Last Vital Signs Temp 97.9 F 05/30/24 14:37 Pulse 56 05/30/24 14:37 Resp 10 L 05/30/24 14:37 BP 189/85 H 05/30/24 14:37 Pulse Ox 97 05/30/24 14:37 O2 Del Method Room Air 05/30/24 14:37 BMI result Body Mass Index 25.8 Declined DS: Data Data Completed and Pending Labs on day of discharge: Laboratory Results - last 24 hr 05/30/24 05/30/24 05/30/24 09:19 11:25 11:45 WBC 5.5 RBC 4.93 Hgb 15.2 Hct 43.8 MCV 88.8 MCH 30.8 MCHC 34.7 RDW 13.3 Plt Count 200 MPV 9.6 Immature Gran % (Auto) 0.2 Neut % (Auto) 55.3 Lymph % (Auto) 29.8 [place] % (Auto) 11.6 H Eos % (Auto) 2.2 Baso % (Auto) 0.9 Lymph # (Auto) 1.7 [place] # (Auto) 0.6 Eos # (Auto) 0.1 Baso # (Auto) 0.1 Abs Immat Gran (auto) 0.01 Absolute Neuts (auto) 3.1 Absolute Nucleated RBC 0.000 Nucleated RBC % (auto) 0.0 PT INR APTT Sodium 144 Potassium 4.1 Chloride 111 H Carbon Dioxide 28 Anion Gap 9 L BUN 13 Creatinine 0.88 Estim Creat Clear Calc 69.2 Estimated GFR > 60 Random Glucose 107 Calcium 9.0 Magnesium 2.1 Total Bilirubin 1.2 H Direct Bilirubin 0.4 AST 15 ALT 18 Alkaline Phosphatase 58 Ammonia 29 Troponin I High Sens 249.1 H* B-Natriuretic Peptide 123 H Total Protein 6.6 Albumin 4.0 Urine Color Yellow Urine Appearance Clear Urine pH 5.5 Ur Specific [place] <= 1.005 Urine Protein Negative Urine Glucose (UA) Negative Urine Ketones Negative Urine Blood Negative Urine Nitrite Negative Ur Leukocyte Esterase Negative Influenza Type A (PCR) NEGATIVE Influenza Type B (PCR) NEGATIVE RSV RNA Qual (PCR) NEGATIVE SARS-CoV-2 RNA (RT-PCR) NEGATIVE S. pyogenes GrpA SUNSHINE 05/30/24 05/30/24 12:41 14:42 WBC RBC Hgb Hct MCV MCH MCHC RDW Plt Count MPV Immature Gran % (Auto) Neut % (Auto) Lymph % (Auto) [place] % (Auto) Eos % (Auto) Baso % (Auto) Lymph # (Auto) [place] # (Auto) Eos # (Auto) Baso # (Auto) Abs Immat Gran (auto) Absolute Neuts (auto) Absolute Nucleated RBC Nucleated RBC % (auto) PT 13.0 H INR 1.1 APTT 30.2 Sodium Potassium Chloride Carbon Dioxide Anion Gap BUN Creatinine Estim Creat Clear Calc Estimated GFR Random Glucose Calcium Magnesium Total Bilirubin Direct Bilirubin AST ALT Alkaline Phosphatase Ammonia Troponin I High Sens 247.3 H* B-Natriuretic Peptide Total Protein Albumin Urine Color Urine Appearance Urine pH Ur Specific [place] Urine Protein Urine Glucose (UA) Urine Ketones Urine Blood Urine Nitrite Ur Leukocyte Esterase Influenza Type A (PCR) Influenza Type B (PCR) RSV RNA Qual (PCR) SARS-CoV-2 RNA (RT-PCR) S. pyogenes GrpA SUNSHINE Negative Discharge Plan Discharge Anticipated Discharge Date/Time: 05/30/24 15:29 Patient Disposition: Left Against Medical Advice Discharge Diagnosis: Failure to thrive Elevated troponin Community-acquired pneumonia Referrals: Physician,None [Primary Care Provider] - 1 Week Discharge Medications: New cefuroxime axetil 500 mg tablet 500 mg PO BID Qty: 10 0RF doxycycline hyclate 100 mg tablet 100 mg PO BID Qty: 10 0RF aspirin 81 mg tablet,chewable 81 mg PO DAILY Qty: 90 0RF atorvastatin 40 mg tablet 40 mg PO BEDTIME Qty: 30 0RF Continued metformin 500 mg tablet 500 mg PO BIDWM losartan 25 mg tablet 25 mg PO DAILY Discharge Orders: Discharge Order (Routine); Ordered 05/30/24 Ordered By: Sophie Leo Diet: Advance to usual diet Activity on Discharge: As tolerated Print Language: Vietnamese Care Plan Goals: Find a primary care provider to initiate care Health Concerns: Failure to thrive Elevated troponin Community-acquired pneumonia Plan of Treatment: The patient has decided to leave against medical advice. He has normal mental status and adequate capacity to make medical decisions. The patient refuses hospital admission and wants to be discharged. The risks have been explained to the patient including worsening illness, chronic pain, permanent disability and even . The benefits of admission have also been explained including the availability of nurses, medical providers, close monitoring, IV medications, diagnostic imaging, treatments, etc.. The patient was able to understand and state the risks and benefits of hospital admission. The patient was given opportunities to ask questions prior to leaving. His was also in agreement for him to leave AMA. Assessment: See discharge summary
[2024-05-30 16:04] LABS: Glucose, Whole Blood 93 mg/dL (60-115)
[2024-05-30 16:54] VITALS: BP 189/85; PULSE 56; RESP 10; TEMP 36.6; O2SAT 97
== END 2024-05-30 17:04 | disposition left against medical advice (07) | DRG 195 ==
LOC: HO.ED 14:15 → HO.EDOVER 14:26
PROVIDERS: Physician Assistant; Admitting Provider Nurse Practitioner Acute Care; Emergency Provider Emergency Medicine; Visit Provider Nurse Practitioner Acute Care
DX: J18.9 Pneumonia, unspecified organism (principal); I10 Essential (primary) hypertension; R62.7 Adult failure to thrive; R79.89 Other specified abnormal findings of blood chemistry; Z68.25 Body mass index [BMI] 25.0-25.9, adult; Z20.822 Contact with and (suspected) exposure to COVID-19; Z79.84 Long term (current) use of oral hypoglycemic drugs; Z79.899 Other long term (current) drug therapy
CPT/HCPCS: 0241U; 36415; 70450; 71046; 80048; 80076; 81003; 82140; 82947; 83735; 83880; 84484; 85025; 85610; 85730; 87040; 87651; 93005; 93306; 99284; J0696; J1644; Q9957

== ENCOUNTER → 2024-05-30 14:21 | Outpatient (BNV) | payer MEDICARE, MEDICAID, SELFPAY | PROVIDERS: Admitting Provider Nurse Practitioner Acute Care; Emergency Provider Emergency Medicine; Visit Provider Internal Medicine Cardiovascular Disease | DX: I42.2 Other hypertrophic cardiomyopathy (principal); I35.8 Other nonrheumatic aortic valve disorders; R79.89 Other specified abnormal findings of blood chemistry | CPT/HCPCS: 93306; 99222 ==

== ENCOUNTER → 2024-05-30 14:21 | Outpatient (BNV) | payer MEDICARE, MEDICAID, SELFPAY | PROVIDERS: Admitting Provider Nurse Practitioner Acute Care; Emergency Provider Emergency Medicine; Visit Provider Nurse Practitioner Acute Care | DX: J18.9 Pneumonia, unspecified organism (principal); Z53.29 Procedure and treatment not carried out because of patient's decision for other reasons | CPT/HCPCS: 99284; 99499 ==